=== PATIENT | female | born 1950 | race African-American/Black ===

== ENCOUNTER 2019-07-02 10:58 | Emergency (ER) | payer OTHER ==
[~2019-07-02] VITALS: Ht 162.6 cm; Wt 94.3 kg
--- NOTE | 2019-07-02 10:58 | NUR ---
PT BIBA BLS TO ER BED 04
[2019-07-02 11:03] VITALS: BP 164/107
[2019-07-02] MEDS ORDERED: MORPHINE SULFATE 4 MG/ML SYR IVP ONE (11:10)
[2019-07-02] MEDS ORDERED: ONDANSETRON 4 MG/2 ML VIAL IVP ONE (11:10)
--- NOTE | 2019-07-02 11:10 | NUR ---
PT. BIBA. PT. COMPLAINS OF PAIN IN LEFT SHOULDER AND LEFT HIP, STATES SHE WAS AT [employer] WHEN SHE FELL, MECHANICAL FALL ON SIDEWALK. NO SYNCOPE NO DIZZINESS, DENIES HITTING HER HEAD, AAOCX4. NO DEFORMITY NOTED ON SHOULDER OR HIP, SWELLING ON BASE OF THIRD DIGIT. PAIN IS A 9/10. LOSS OF ROM ON LEFT ARM, RADIAL PULSE PRESENT +2, CAP REFILL <3SECS, COLOR WNL. EMS PLACED A 20G IV ON RIGHT AC, GAVE 200MCG OF [place] ON AMBULANCE. DR. VELOZ AT BEDSIDE. BP 201/96, POSSIBLE FROM PAIN, ER MD AWARE. PMHX: COPD, HTN RX: UNKNOWN
[2019-07-02 11:27] LABS: BASOPHILS % (AUTO) 0.9 % (0.0-2.0); EOSINOPHILS # (AUTO) 0.1 K/uL (0-0.4); EOSINOPHILS % (AUTO) 1.8 % (0.0-4.0); HEMATOCRIT 36.6 % (36-48); LYMPHOCYTES # (AUTO) 1.6 K/uL (2.5-16.5); LYMPHOCYTES % (AUTO) 29.2 % (20.5-51.1); MEAN CORPUSCULAR HEMOGLOBIN 29 pg (27-31); MEAN CORPUSCULAR HGB CONC 33 g/dL (33-37); MEAN CORPUSCULAR VOLUME 87.5 fL (80-94); MONOCYTES # (AUTO) 0.2 K/uL (0.8-1.0); MONOCYTES % (AUTO) 4.5 % (1.7-9.3); NEUTROPHILS # (AUTO) 3.4 K/uL (1.8-7.7); NEUTROPHILS % (AUTO) 63.6 % (42.2-75.2); PLATELET COUNT (AUTO) 348 K/uL (140-450); RED BLOOD CELL COUNT(AUTO) 4.18 MIL/uL (4.20-5.40); RED CELL DISTRIBUTION WIDTH 14.9 % (11.6-13.7); WHITE BLOOD COUNT (AUTO) 5.4 K/uL (4.8-10.8)
--- NOTE | 2019-07-02 11:31 | NUR ---
PT. WENT TO X-RAY
[2019-07-02 12:00] LABS: ANION GAP 14.9 (8-16); CARBON DIOXIDE 24.2 mmol/L (21-32); CREATININE 0.9 mg/dL (0.6-1.3); POTASSIUM 3.1 mmol/L (3.5-5.1)
[2019-07-02 12:01] LABS: ALBUMIN 3.2 g/dL (3.4-5.0); TOTAL BILIRUBIN 0.4 mg/dL (0.0-1.0)
--- NOTE | 2019-07-02 12:26 | NUR ---
X-Ray at bedside.
[2019-07-02 14:13] VITALS: BP 138/71
--- NOTE | 2019-07-02 14:13 | NUR ---
Patient discharged with v/s stable. Written and verbal after care instructions given and explained. Patient alert, oriented and verbalized understanding of instructions. Ambulatory with steady gait. All questions addressed prior to discharge. ID band removed. Patient advised to follow up with PMD. Rx of NORCO AND IBOPROFEN given. Patient educated on indication of medication including possible reaction and side effects. Opportunity to ask questions provided and answered. PT IS WAITING AT [employer] FOR RIDE.
== END 2019-07-02 14:13 | disposition home or self-care (01) ==
LOC: MED 10:58
DX: S40.012A Contusion of left shoulder, initial encounter (principal); S60.212A Contusion of left wrist, initial encounter; S70.02XA Contusion of left hip, initial encounter; S40.022A Contusion of left upper arm, initial encounter; J44.9 Chronic obstructive pulmonary disease, unspecified; I10 Essential (primary) hypertension; W01.0XXA Fall on same level from slipping, tripping and stumbling without subsequent striking against object, initial encounter; Y93.89 Activity, other specified; Y92.89 Other specified places as the place of occurrence of the external cause; Y99.8 Other external cause status
CPT/HCPCS: 36415; 71045; 73030; 73060; 73090; 73110; 73502; 80053; 85025; 96374; 96375; 99284; J2270; J2405